=== PATIENT | male | born 1945 | race Caucasian/White ===

== ENCOUNTER 2020-06-07 09:13 | Outpatient (CLI) | payer OTHER | END 2020-06-07 09:20 | disposition home or self-care (01) | LOC: RAD 09:13 | PROVIDERS: ATTEND Internal Medicine Gastroenterology | DX: M25.562 Pain in left knee (principal); M25.561 Pain in right knee; M25.59 Pain in other specified joint ==

== ENCOUNTER → 2020-06-12 | Outpatient (CLI) | payer OTHER | END | disposition home or self-care (01) | LOC: MRI 14:49 | DX: M17.12 Unilateral primary osteoarthritis, left knee (principal); M25.50 Pain in unspecified joint | CPT/HCPCS: 73721 ==

== ENCOUNTER 2020-06-18 13:28 | Outpatient (CLI) | payer OTHER | END 2020-06-18 13:36 | disposition home or self-care (01) | LOC: MRI 13:28 | PROVIDERS: ATTEND General Practice | DX: M51.17 Intervertebral disc disorders with radiculopathy, lumbosacral region (principal); M54.5 Low back pain; M51.36 Other intervertebral disc degeneration, lumbar region | CPT/HCPCS: 72148 ==

== ENCOUNTER 2022-09-15 23:44 | Inpatient (IN) | payer OTHER ==
[~2022-09-15] VITALS: Ht 162.6 cm; Wt 74.8 kg
[~2022-09-15 23:44] MED LIST: AMLODIPINE-OLM1 EAC2; MELOXICAM15 MG PO; [UNRECOGNIZED DRUG - OTHER]
[2022-09-15] MEDS ORDERED: LIPITOR40 M1 PO (23:54)
[2022-09-15] MEDS ORDERED: ARICEPT5 MG PO (23:54)
[2022-09-15] MEDS ORDERED: TOPROL XL25 M1 PO (23:54)
[2022-09-15] MEDS ORDERED: AMLODIPINE BESYL5 MG PO (23:55)
== END 2022-09-22 17:08 | disposition home or self-care (01) | DRG 379 ==
LOC: ER 23:44 → MEDI 09-16 16:07
PROVIDERS: ADMIT Internal Medicine; ATTEND Internal Medicine
PROC: 30233N1 Transfusion of Nonautologous Red Blood Cells into Peripheral Vein, Percutaneous Approach (ICD-10-PCS; 2022-09-16)
PROC: BW211ZZ Computerized Tomography (CT Scan) of Abdomen and Pelvis using Low Osmolar Contrast (ICD-10-PCS; 2022-09-16)
PROC: CD271ZZ Tomographic (Tomo) Nuclear Medicine Imaging of Gastrointestinal Tract using Technetium 99m (Tc-99m) (ICD-10-PCS; 2022-09-16)
PROC: 0DBL8ZX Excision of Transverse Colon, Via Natural or Artificial Opening Endoscopic, Diagnostic (ICD-10-PCS; principal; 2022-09-21)
DX: K57.31 Diverticulosis of large intestine without perforation or abscess with bleeding (principal); K62.5 Hemorrhage of anus and rectum; D50.0 Iron deficiency anemia secondary to blood loss (chronic); K63.5 Polyp of colon; C67.9 Malignant neoplasm of bladder, unspecified; I11.9 Hypertensive heart disease without heart failure; I25.10 Atherosclerotic heart disease of native coronary artery without angina pectoris; E78.5 Hyperlipidemia, unspecified; F03.90 Unspecified dementia, unspecified severity, without behavioral disturbance, psychotic disturbance, mood disturbance, and anxiety; Z95.818 Presence of other cardiac implants and grafts

== ENCOUNTER 2023-05-01 10:04 | Outpatient (CLI) | payer OTHER ==
[~2023-05-01 10:04] MED LIST changes: +AMLODIPINE BESYL5 MG PO; +ARICEPT5 MG PO; +LIPITOR40 M1 PO; +TOPROL XL25 M1 PO
== END 2023-05-01 10:13 | disposition home or self-care (01) ==
LOC: RAD 10:04
PROVIDERS: ATTEND General Practice
DX: R06.6 Hiccough (principal); R05.9 Cough, unspecified